=== PATIENT | female | born 1970 | race Caucasian/White ===

== ENCOUNTER 2021-08-29 00:57 | Emergency (ER) | payer OTHER ==
[2021-08-29] MEDS ORDERED: VALTREX1000 MG PO (02:13)
[2021-08-29] MEDS ORDERED: NEURONTIN100 MG PO (02:13)
== END 2021-08-29 02:25 | disposition home or self-care (01) ==
LOC: FER 00:57
DX: B02.9 Zoster without complications (principal); F17.200 Nicotine dependence, unspecified, uncomplicated; Z88.0 Allergy status to penicillin
CPT/HCPCS: 99282